=== PATIENT | male | born 1955 | race Caucasian/White ===

== ENCOUNTER 2020-09-27 12:00 | Emergency (ER) | payer MEDICARE, SELFPAY ==
[2020-09-27 12:43] VITALS: BP 154/75; PULSE 83; RESP 20; TEMP 37; O2SAT 95
--- NOTE | 2020-09-28 12:47 | ED.BACK ---
HPI - Back Pain/Injury General Chief Complaint: Back Pain/Injury Stated Complaint: left lower back pain Source: patient Mode of arrival: ambulatory Limitations: no limitations History of Present Illness HPI Narrative: Gil is a 65 year old male who presents with sudden onset of left flank pain x 2 hours. He reports pain as constant, denies increased pain with movement. He reports pain as 8/10. Reports taking ibuprofen without relief. He denies urinary complaints or a history of kidney stones. He denies all other complaints. MD elicited complaint: other (flank pain) Related Data Home Medications Medication Instructions Recorded Confirmed albuterol sulfate 90 mcg INHALATION DIRECTED 09/27/20 09/27/20 albuterol sulfate [Ventolin HFA] 90 mcg INHALATION DIRECTED 09/27/20 09/27/20 budesonide-formoterol [Symbicort] 4.5 inh INHALATION DIRECTED 09/27/20 09/27/20 flu vac qv 2019(18yr up)rc(PF) 180 mcg IM DIRECTED 09/27/20 09/27/20 [Flublok Quad 1764-0420 (PF)] arpquvydliu-dazegokpz-whekmbdd 25 inh INHALATION DIRECTED 09/27/20 09/27/20 [Trelegy Ellipta] glycopyrrolate-formoterol [Bevespi 4.8 inh INHALATION DIRECTED 09/27/20 09/27/20 Aerosphere] umeclidinium-vilanterol [Anoro 25 inh INHALATION DIRECTED 09/27/20 09/27/20 Ellipta] Allergies Allergy/AdvReac Type Severity Reaction Status Date / Time No Known Allergies Allergy Unverified 11/16/12 12:46 Review of Systems Review of Systems: Narrative: CONSTITUTIONAL: Denies fever, chills, or sweats. EYES: Denies visual changes, redness, or discharge. ENT: Denies rhinorrhea, congestion, sore throat, or otalgia. CARDIOVASCULAR: Denies chest pain, palpitations, or edema. RESPIRATORY: Denies cough or dyspnea. GASTROINTESTINAL: Denies abdominal pain, nausea, vomiting, or diarrhea. GENITOURINARY: Left flank pain SKIN: Denies rash or itching. MUSCULOSKELETAL: Denies back pain, joint pain, or myalgia. NEUROLOGIC: Denies headache, numbness, dizziness, or weakness. PSYCHIATRIC: Denies anxiety or depression. PMFSH Past Medical History Medical History COPD (chronic obstructive pulmonary disease) Surgical History Surgical History No significant past surgical history Family History Family History Other Heart disease Social History Social History (Updated 09/28/20 @ 12:56 by ANGELO Nicholson) Smoking status: Current every day smoker Tobacco type: cigarettes Alcohol intake: never Substance use: never Gender identity (if verbalized by the patient): Male Exam Narrative: Exam Narrative: GENERAL: Well-appearing, well-nourished, and in no acute distress. HEAD: Normocephalic, atraumatic. EYES: No redness or drainage. Conjunctiva are normal. ENT: Mucous membranes pink and moist. CHEST: No respiratory distress. HEART: Regular rate and rhythm. GI: Soft, nontender without rebound, or guarding. No distention. Bowel sounds normal in all quadrants. MUSCULOSKELETAL: No bony tenderness. EXTREMITIES: Normal range of motion. SKIN: Warm, dry, no rash. NEURO: No focal deficits. Alert and oriented x3. Gait steady. PSYCH: Normal affect. No signs of depression or anxiety. Course Vital Signs Vital signs: Vital Signs Temperature 37.0 C 09/27/20 12:43 Pulse Rate 83 09/27/20 12:43 Respiratory Rate 20 09/27/20 12:43 Blood Pressure 154/75 H 09/27/20 12:43 Pulse Oximetry 95 09/27/20 12:43 Temperature 37.0 C 09/27/20 12:43 Pulse Rate 83 09/27/20 12:43 Respiratory Rate 20 09/27/20 12:43 Blood Pressure 154/75 H 09/27/20 12:43 Pulse Oximetry 95 09/27/20 12:43 Reviewed. Patient has been instructed to follow-up with his PCP regarding his blood pressure. Transfer Transfered to: [facility] Transfer rationale: Higher level of care Acc
== END 2020-09-27 13:46 | disposition short-term general hospital (02) ==
LOC: EXPBETH 12:13
PROVIDERS: Emergency Provider Nurse Practitioner; PCP Internal Medicine
DX: R10.9 Unspecified abdominal pain (principal); F17.210 Nicotine dependence, cigarettes, uncomplicated; J44.9 Chronic obstructive pulmonary disease, unspecified
CPT/HCPCS: 99202; G0463